=== PATIENT | female | born 1975 ===

== ENCOUNTER 2020-05-19 04:47 | Outpatient (CLI) | payer OTHER, SELFPAY | END 2020-05-19 05:07 | DX: R94.6 Abnormal results of thyroid function studies (principal) | CPT/HCPCS: 36415; 84439; 84443 ==

== ENCOUNTER 2020-06-28 16:29 | Outpatient (REF) | payer OTHER, SELFPAY ==
[2020-06-28 19:09] LABS: TSH (W/Ref FT4) 4.51 uIU/mL (0.36-3.74)
[2020-06-28 19:31] LABS: FREE T4 1.14 ng/dL (0.76-1.46)
== END 2020-06-28 16:49 ==
LOC: NCHCN 16:29
PROVIDERS: PCP Nurse Practitioner; Visit Provider Nurse Practitioner
DX: E03.9 Hypothyroidism, unspecified (principal)
CPT/HCPCS: 84439; 84443

== ENCOUNTER 2020-08-01 11:04 | Outpatient (REF) | payer OTHER, SELFPAY ==
[2020-08-01 19:25] LABS: TSH (W/Ref FT4) 5.76 uIU/mL (0.36-3.74)
[2020-08-01 19:45] LABS: FREE T4 1.04 ng/dL (0.76-1.46)
== END 2020-08-01 11:24 ==
LOC: NCHCN 11:04
PROVIDERS: PCP Nurse Practitioner; Visit Provider Nurse Practitioner
DX: E03.9 Hypothyroidism, unspecified (principal)
CPT/HCPCS: 84439; 84443

== ENCOUNTER 2021-02-23 08:44 | Outpatient (REF) | payer OTHER, SELFPAY ==
[2021-02-23 19:42] LABS: TSH (W/Ref FT4) 2.88 uIU/mL (0.36-3.74)
== END 2021-02-23 08:45 | disposition home or self-care (01) ==
LOC: NCHCN 08:44
PROVIDERS: PCP Nurse Practitioner; Visit Provider Nurse Practitioner
DX: E03.9 Hypothyroidism, unspecified (principal)
CPT/HCPCS: 84443

== ENCOUNTER 2022-12-06 14:51 | Outpatient (REF) | payer BC, SELFPAY ==
--- NOTE | 2022-12-06 14:25 | PAPFT_PTH ---
PATIENT: Fay Reagan LOC: NCN #:[id number] AGE/SX: 47/F ROOM: RE12/06/[address]: JOANNA SHARIF : 1975 BED: DIS: 12/06/2022 SPEC #: [id number] RECD: 12/06/22 18:33 STATUS: PERLA REQ #: [id number] LUIS ALFREDO: 12/06/22 14:[address]: Joanna Sharif DEPT: [facility] Cytology RECD BY: Letty Fuller ENTERED: 12/06/22 18:33 SP TYPE: PAPFT OTHR DR: Dennise Elias Tissues: 1 - CX/ENDOCX FOR PAP SMEARS Procedures: PAP THIN PREP/[facility] Screening HPV DNA PROBE Comments: [id number]
== END 2022-12-06 14:52 | disposition home or self-care (01) ==
LOC: NCHCN 14:51
PROVIDERS: PCP Nurse Practitioner; Visit Provider Nurse Practitioner Family
DX: Z12.4 Encounter for screening for malignant neoplasm of cervix (principal)
CPT/HCPCS: 88142; 87624